=== PATIENT | female | born 1985 | race Caucasian/White ===

== ENCOUNTER 2016-05-27 15:10 | Emergency (ER) | payer BC, OTHER ==
[~2016-05-27 15:10] MED LIST: KEFLEX500 M2 PO; MACROBID100 MG PO; NO MEDICATIONS; PRENATAL VITAMI1 TA5 PO
[2016-05-27 15:20] LABS: URINE SOURCE CLEAN CATCH
[2016-05-27 15:23] LABS: URINE APPEARANCE CLEAR; URINE BILIRUBIN NEG (NEG); URINE BLOOD NEG (NEG); URINE COLOR YELLOW; URINE GLUCOSE NEG (NORM); URINE KETONE NEG (NEG); URINE LEUKOCYTE ESTERASE TRACE (NEG); URINE NITRATE NEG (NEG); URINE PROTEIN NEG (NEG); URINE UROBILINOGEN 0.2 MG/DL (NORM)
[2016-05-27 15:25] LABS: MICRO INDICATED? YES
[2016-05-27 15:40] LABS: CULTURE INDICATED? NO; URINE BACTERIA NEG (NEG); URINE RBC 0-2 /[HPF] (0-2); URINE WBC 0-2 /[HPF] (0-5)
== END 2016-05-27 15:43 | disposition home or self-care (01) ==
LOC: SED 15:10
PROVIDERS: Emergency Medicine
DX: R11.2 Nausea with vomiting, unspecified (principal); R19.7 Diarrhea, unspecified; Z88.0 Allergy status to penicillin; Z88.5 Allergy status to narcotic agent; Z88.6 Allergy status to analgesic agent
CPT/HCPCS: 81003; 84703; 99283

== ENCOUNTER 2016-08-30 20:10 | Emergency (ER) | payer BC, OTHER ==
[2016-08-30 20:36] LABS: URINE SOURCE CLEAN CATCH
[2016-08-30 20:39] LABS: URINE APPEARANCE HAZY; URINE BILIRUBIN NEG (NEG); URINE COLOR YELLOW; URINE GLUCOSE NEG (NORM); URINE KETONE TRACE (NEG); URINE NITRATE POS (NEG); URINE PROTEIN NEG (NEG); URINE SPECIFIC GRAVITY 1.025 (1.003-1.035)
[2016-08-30 20:46] LABS: MICRO INDICATED? YES; URINE BLOOD 1+ (NEG); URINE LEUKOCYTE ESTERASE 2+ (NEG)
[2016-08-30 20:48] LABS: CULTURE INDICATED? YES; URINE BACTERIA 2+ (NEG); URINE SQUAMOUS EPITHELIAL CELL MANY /[HPF]; URINE TRANSITIONAL EPI CELLS FEW /[HPF]; URINE WBC 100-200 /[HPF] (0-5)
[2016-08-30 20:49] LABS: URINE MUCUS PRESENT
== END 2016-08-30 21:45 | disposition home or self-care (01) ==
LOC: SED 20:10
PROVIDERS: Emergency Medicine
DX: N30.90 Cystitis, unspecified without hematuria (principal); Z90.89 Acquired absence of other organs
CPT/HCPCS: 81003; 84703; 87086; 87088; 87186; 99284

== ENCOUNTER 2016-10-17 09:43 | Emergency (ER) | payer BC, OTHER ==
--- NOTE | ~2016-10-17 | CR7 ---
[facility]. [facility] A Service of [facility] & [facility] RADIOLOGY TEXT RESULTS PATIENT: BOGDAN LORD LOCATION: SED : 89 UNIT #: [id number] AGE: [address]: Roberto Kraft MD SEX: F ORDER DR: [id number] [place] [id number] E MR#: [id number] Acc #: [id number] NAME: BOGDAN LORD : 1985 SEX: F STUDY DATE/TIME: 10/17/2016 11:40 UNIT: SED ROOM: STUDY DESCRIPTION: CR Abdomen Single AP View Attending Physician: Roberto Kraft M.D. Ordering Physician: Roberto Kraft M.D. Primary Care Physician: Primary Care Physician No MEDICAL IMAGING REPORT This report is preliminary unless electronic signature is present. EXAM Abdomen HISTORY Abdominal pain off and on for a month FINDINGS A supine view of the abdomen was obtained. The bowel gas pattern is normal. The bones are normal. There is no mass visible. IMPRESSION Normal supine abdomen image. Dictated by... Rocky Nunez M.D. THIS IS AN ELECTRONICALLY VERIFIED REPORT Rocky Nunez M.D. at 10/17/2016 4:07 PM FEL/to TD: 10/17/2016 14:56 JOB #: [id number] MEDICAL IMAGING REPORT Page 1 of 1
[2016-10-17 11:24] LABS: URINE SOURCE CLEAN CATCH
[2016-10-17 11:27] LABS: URINE APPEARANCE SL CLOUDY; URINE BILIRUBIN NEG (NEG); URINE BLOOD TRACE-INTACT (NEG); URINE COLOR YELLOW; URINE GLUCOSE NEG (NORM); URINE KETONE NEG (NEG); URINE LEUKOCYTE ESTERASE 1+ (NEG); URINE NITRATE POS (NEG); URINE PH 5.5 (5-8); URINE PROTEIN NEG (NEG); URINE UROBILINOGEN 0.2 MG/DL (NORM)
[2016-10-17 11:44] LABS: MICRO INDICATED? YES
[2016-10-17 11:47] LABS: CULTURE INDICATED? YES; URINE BACTERIA 3+ (NEG); URINE RBC 0-2 /[HPF] (0-2); URINE SQUAMOUS EPITHELIAL CELL OCCAS /[HPF]
== END 2016-10-17 12:37 | disposition home or self-care (01) ==
LOC: SED 09:43
PROVIDERS: Emergency Medicine
DX: N30.00 Acute cystitis without hematuria (principal); F17.210 Nicotine dependence, cigarettes, uncomplicated; Z88.0 Allergy status to penicillin; Z88.8 Allergy status to other drugs, medicaments and biological substances
CPT/HCPCS: 74000; 81003; 84703; 87086; 87088; 87186; 99284

== ENCOUNTER 2016-10-21 11:04 | Emergency (ER) | payer BC, OTHER ==
[~2016-10-21] VITALS: Ht 162.6 cm; Wt 47.6 kg
[2016-10-21] MEDS ORDERED: BACTRIM DS TAB1 EACH (11:19)
[2016-10-21 12:00] LABS: BASOPHIL% 0.5 % (0-2.5); EOSINOPHIL# 0.1 X10e3 (0-0.7); EOSINOPHIL% 1.2 % (0.0-7.0); HEMOGLOBIN 14.1 gm/dL (12.0-16.0); LYMPHOCYTE# 1.4 X10e3 (1.0-3.5); LYMPHOCYTE% 17.1 % (17.0-45.0); MEAN CELL VOLUME 92.9 FL (83-96); MEAN CORPUSCULAR HGB CONC 34.4 g/dL (30-36); MEAN PLATELET VOLUME 8.5 FL (6.5-11.5); MONOCYTE# 0.8 X10e3 (0-1.0); MONOCYTE% 9.5 % (3.0-12.0); NEUTROPHIL# 5.9 X10e3 (1.5-7.1); NEUTROPHIL% 71.7 % (40-75); PLATELET COUNT 161 X10e3 (140-420); RED BLOOD COUNT 4.42 X10e (3.90-5.30); RED CELL DISTRIBUTION WIDTH 12.6 % (11.0-15.5); WHITE BLOOD COUNT 8.3 X10e3 (4.0-10.5)
[2016-10-21 12:03] LABS: URINE SOURCE CLEAN CATCH
[2016-10-21 12:06] LABS: URINE APPEARANCE CLEAR; URINE BILIRUBIN NEG (NEG); URINE BLOOD 3+ (NEG); URINE COLOR YELLOW; URINE GLUCOSE NEG (NORM); URINE KETONE NEG (NEG); URINE LEUKOCYTE ESTERASE NEG (NEG); URINE NITRATE NEG (NEG); URINE PROTEIN NEG (NEG); URINE UROBILINOGEN 0.2 MG/DL (NORM)
[2016-10-21 12:07] LABS: MICRO INDICATED? YES
[2016-10-21 12:08] LABS: DIFF IND NO
[2016-10-21 12:15] LABS: CULTURE INDICATED? NO; URINE BACTERIA NEG (NEG); URINE RBC 25-50 /[HPF] (0-2); URINE WBC 0-2 /[HPF] (0-5)
[2016-10-21 12:34] LABS: ALKALINE PHOSPHATASE 49 U/L (32-92); ALT (SGPT) 11 U/L (10-40); AMYLASE 20 U/L (0-46); AST (SGOT) 12 U/L (10-42); BILIRUBIN, DIRECT <0.1 mg/dL (0.0-0.2); BILIRUBIN,INDIRECT 0.2 mg/dL (0.0-0.9); BILIRUBIN,TOTAL 0.3 mg/dL (0.2-2.0); BLOOD UREA NITROGEN 7 mg/dL (9-23); CALCIUM SERUM 9.1 mg/dL (8.4-10.2); CARBON DIOXIDE 26 mmol/L (22-31); CHLORIDE 108 mmol/L (100-111); GLOM FILT RATE Estimated 76.6 mL/min (>60); GLUCOSE FASTING 96 mg/dL (70-110); LIPASE 27 U/L (22-51); POTASSIUM 4.1 mmol/L (3.5-5.1); SODIUM 136 mmol/L (135-145)
== END 2016-10-21 13:09 | disposition home or self-care (01) ==
LOC: SED 11:04
PROVIDERS: Student in an Organized Health Care Education/Training Program
DX: R11.2 Nausea with vomiting, unspecified (principal); F17.200 Nicotine dependence, unspecified, uncomplicated; Z88.0 Allergy status to penicillin; Z88.5 Allergy status to narcotic agent; Z90.49 Acquired absence of other specified parts of digestive tract
CPT/HCPCS: 36415; 80048; 80076; 81003; 82150; 83690; 84703; 85025; 99284